=== PATIENT | female | born 1985 | race African-American/Black ===

== ENCOUNTER 2016-04-28 13:55 | Emergency (ER) | payer OTHER ==
[2016-04-28] MEDS ORDERED: Bupivacaine 0.5% 10 ML VIAL ONE (14:15)
[2016-04-28] MEDS ORDERED: Morphine Sulfate 2 MG/ML SYRINGE ONE (14:18)
--- NOTE | 2016-04-28 15:23 | ERRECORD ---
[facility] EMERGENCY RECORD HPI ABSCESS (14:48 BPIC) CHIEF COMPLAINT: Patient presents for evaluation of swelling, Patient presents for evaluation of pain. HISTORIAN: History provided by patient, left sided vaginal abscess similar to but more posterior than previous bartholin's gland abscess. sharp pain, worse when sitting. no radiation. no drainage, no fever. pt states that this had to be drained last time and it was a hard experience for her. she did follow up with her pcp last time and the abscess healed well. ROS (14:51 BPIC) CONSTITUTIONAL: Negative constitutional review of systems. EYES: Negative eye review of systems. ENT: Negative ears, nose, throat review of systems. CARDIOVASCULAR: Negative cardiovascular review of systems. RESPIRATORY: Negative respiratory review of systems. GI: Negative gastrointestinal review of systems. MUSCULOSKELETAL: Negative musculoskeletal review of systems. SKIN: genital abscess. PSYCHIATRIC: Negative psychiatric review of systems. NOTES: All other ROS is negative except as listed in HPI. PAST MEDICAL HISTORY MEDICAL HISTORY: Past medical history includes cardiac history, No past medical history of gynecologic disorders, No past medical history. POST HEART FAILURE. (14:03 MCBE) FEMALE SURGICAL HISTORY: Surgical history of section, Surgical history of tubal ligation. (14:03 MCBE) PSYCHIATRIC HISTORY: No previous psychiatric history. (14:03 MCBE) SOCIAL HISTORY: Patient denies alcohol use, Patient denies drug use, Patient currently uses tobacco, smokes cigarettes, Patient smokes 1 pack per day. (14:03 MCBE) NOTES: I have reviewed and agree with the PMH/PSxH/FamHx/SocHx obtained by the nurse. (14:51 BPIC) KNOWN ALLERGIES amoxicillin (Unconfirmed): Reaction: Hives penicillin G sodium CURRENT MEDICATIONS (14:00 MCBE) spironolactone: TABLET : Strength - 25 mg : ORAL Patient Dose: 12.5 mg once a day. carvedilol: TABLET : Strength - 3.125 mg : ORAL Patient Dose: 2 times a day. VITAL SIGNS &a-1R&a+25V*p+0X*[id number]*c202B*c15G*c2P*p-0X&a-25V&a+1R Name: Jerome Bryan Becker : 1985 F30 MedRec: [id number] AcctNum: [id number] Prepared: TueApr 28, 2016 15:26 by Interface Page 1 of 3 pMD [facility] EMERGENCY RECORD VITAL SIGNS: BP: 160/99, Pulse: 124, Resp: 18, Temp: 97.6 (Oral), Pain: 10, O2 sat: 100 on Room Air, Time: 04/28/2016 14:02. (14:02 MCBE) BP: 145/78, Pulse: 99, Resp: 18, Temp: 98.0 (Oral), Pain: 3, O2 sat: 97 on Room Air, Time: 04/28/2016 15:17. (15:17 MCBE) PHYSICAL EXAM CONSTITUTIONAL: Vital signs reviewed, Patient afebrile, Pulse normal, Blood pressure normal, Respiratory rate normal, Patient appears non toxic, Patient appears pain free, Patient alert and oriented to person, place and time. (14:51 BPIC) HEAD: Head exam included findings of head atraumatic, normocephalic. (14:51 BPIC) EYES: Eye exam included findings of eyelids normal to inspection, Pupils equally round and reactive to light, Extraocular muscles intact. (14:51 BPIC) ENT: ENT exam normal. (14:51 BPIC) NECK: Neck exam included findings of normal range of motion, Trachea midline. (14:51 BPIC) RESPIRATORY CHEST: Respiratory exam included findings of no respiratory distress, Breath sounds clear. (14:51 BPIC) CARDIOVASCULAR: Cardiovascular exam included findings of heart rate regular rate and rhythm, Heart sounds normal. (14:51 BPIC) GENITOURINARY FEMALE: Genitourinary exam included findings of external genitalia abnormal, left inferior labial abscess with erythema tenderness and fluctuance. (14:53 BPIC) NEURO: Neuro exam findings include patient oriented to person, place and time, Speech normal. (14:51 BPIC) PSYCHIATRIC: Psychiatric exam included findings of patient oriented to person place and time, Normal affect. (14:51 BPIC) MEDICATION ADMINISTRATION SUMMARY Drug Name: morphine injection, Dose Ordered: 2 mg, Route: Intramuscular, Status: Given, Time: 14:22 04/28/2016, Detailed record available in Medication Service section. DOCTOR NOTES (14:59 BPIC) TEXT: I discussed the diagnosis with the patient prior to discharge. All questions were answered. There is no indication for admission currently and the patient will follow up with his primary care physician. Any pertinent labs or imaging was reviewed and dicussed with the patient. If any new or emergent symptoms occur, the patient will return to the emergency department. PROBLEM LIST No recorded problems DIAGNOSIS (14:59 BPIC) FINAL: PRIMARY: Left labial vaginal abscess. &a-1R&a+25V*p+0X*s1180L*c202B*c15G*c2P*p-0X&a-25V&a+1R Name: Bryan Cano : 1985 F30 MedRec: [id number] AcctNum: [id number] Prepared: TueApr 28, 2016 15:26 by Interface Page 2 of 3 pMD [facility] EMERGENCY RECORD PRESCRIPTION (15:00 BPIC) clindamycin HCl: CAPSULE : 300 mg : ORAL : Quantity: 300 Unit: mg Route: ORAL Schedule: 3 times a day Dispense: 30 Unit: cap(s) May substitute. Refills: No Refills . NOTES: No Refills. traMADol: TABLET : 50 mg : ORAL : Quantity: 50 Unit: mg Route: ORAL Schedule: every 6 hours PRN Dispense: 20 Unit: tab(s) May substitute. Refills: No Refills . NOTES: ^s=No Refills No Refills. DISPOSITION PATIENT: Disposition Type: Discharge, Disposition: *Discharge Home, Condition: Good. (14:59 BPIC) Patient left the department. (15:22 MCBE) Singh: BPIC=MD Ricks Bryan MCBE=Natalie Augustine &a-1R&a+25V*p+0X*l7252G*c202B*c15G*c2P*p-0X&a-25V&a+1R Name: Bryan Cano : 1985 F30 MedRec: [id number] AcctNum: [id number] Prepared: TueApr 28, 2016 15:26 by Interface Page 3 of 3 pMD MTDD
--- NOTE | 2016-04-28 15:28 | PICIS ---
[facility] EMERGENCY RECORD TRIAGE (TueApr 28, 2016 14:00 MCBE) TRIAGE NOTES: diagnosed with abscess several months ago. PATIENT REPORTS IT HAS RETURNED. (TueApr 28, 2016 14:00 MCBE) PATIENT: NAME: Bryan Cano, AGE: 30, GENDER: female, : [facility] 1985, TIME OF GREET: TueApr 28, 2016 13:56, PREFERRED LANGUAGE: Czech, ETHNICITY: Not or , ECODE BILLING MAP: [facility], SSN: [id number], Zip Code: [address], KG WEIGHT: 86.64, PHONE: , , , PERSON ID: [id number]. (TueApr 28, 2016 14:00 MCBE) COMPLAINT: ABSCESS. (TueApr 28, 2016 14:00 MCBE) ADMISSION: URGENCY: 4 Non Urgent, ADMISSION SOURCE: Home, TRANSPORT: CAR, BED: ER -04. (TueApr 28, 2016 14:00 MCBE) ASSESSMENT: Assessment: PATIENT STABLE AND IN NAD. (14:03 MCBE) IMMUNIZATIONS: Flu vaccine up to date, Tetanus immunization up to date. (14:03 MCBE) SIRS SCORING: Heart Rate 55-109 (0), Temp range 96.8-101.1 (0), respiratory rate 12-24 (0), Mental Status altered: no (0), Infection or Suspected Infection: No. (14:03 MCBE) TRIAGE SCREENING: Patient denies suicidal ideation, Patient denies presence of domestic violence. (14:03 MCBE) PROVIDERS: TRIAGE NURSE: Natalie Augustine. (TueApr 28, 2016 14:00 MCBE) VITAL SIGNS: BP 160/99, Pulse 124, Resp 18, Temp 97.6, (Oral), Pain 10, O2 Sat 100, on Room Air, Time 04/28/2016 14:02. (14:02 MCBE) PREVIOUS VISIT ALLERGIES: amoxicillin, penicillin G sodium. (TueApr 28, 2016 14:00 MCBE) amoxicillin, penicillin G sodium. (14:03 MCBE) KNOWN ALLERGIES amoxicillin (Unconfirmed): Reaction: Hives penicillin G sodium CURRENT MEDICATIONS (14:00 MCBE) spironolactone: TABLET : Strength - 25 mg : ORAL Patient Dose: 12.5 mg once a day. carvedilol: TABLET : Strength - 3.125 mg : ORAL Patient Dose: 2 times a day. VITAL SIGNS VITAL SIGNS: BP: 160/99, Pulse: 124, Resp: 18, Temp: 97.6 (Oral), Pain: 10, O2 sat: 100 on Room Air, Time: 04/28/2016 14:02. (14:02 MCBE) BP: 145/78, Pulse: 99, Resp: 18, Temp: 98.0 (Oral), Pain: 3, O2 sat: 97 on Room Air, Time: 04/28/2016 15:17. (15:17 MCBE) NURSING ASSESSMENT: GENITOURINARY (14:05 MCBE) CONSTITUTIONAL: Complex assessment performed, Patient arrives &a-1R&a+25V*p+0X*l0192X*c202B*c15G*c2P*p-0X&a-25V&a+1R Name: Bryan Cano : 1985 F30 MedRec: [id number] AcctNum: [id number] Prepared: TueApr 28, 2016 15:26 by Interface Page 1 of 6 pMD [facility] EMERGENCY RECORD ambulatory, Gait steady, History obtained from patient, Patient appears comfortable, Patient cooperative, Patient alert, Oriented to person, place and time, Skin warm, Skin dry, Skin normal in color, Mucous membranes pink, Mucous membranes moist, Patient is well-groomed. PAIN FEMALE: to the left labia majora. NONVERBAL PAIN: Non-Verbal pain assessment findings include: No non-verbal complaints while at rest (0), Non-Verbal complaints present with movement (1), Facial Grimaces not present at rest (0), Facial grimaces not present with movement (0), Bracing not present at rest (0), Bracing not present with movement (0), Restlessness not present at rest (0), Restlessness not present with movement (0), Rubbing not present at rest (0), Rubbing not present with movement (0), Result: 1. GENITOURINARY FEMALE: no associated urinary complaints, no associated vaginal discharge, no associated vaginal bleeding, Associated with complaint of painful intercourse. ABDOMEN: Abdomen assessment findings include abdomen symmetrical, Abdomen soft, non-tender, Bowel sound normal, no associated nausea, no associated vomiting, no associated diarrhea. NURSING PROCEDURE: DISCHARGE NOTE (15:15 MCBE) DISCHARGE: Patient discharged to home, ambulating without assistance, family driving, accompanied by //partner, Summary of Care printed/ provided, Discharge instructions given to patient, Simple or moderate discharge teaching performed, by NATALIE DODSON, EXPLAINED DISCHARGE INSTRUCTIONS. INSTRUCTED TO RETURN IF S/S WORSEN. INSTRUCTED TO COMPLETE ALL ANITBIOTICS. INFORMED PATIENT PRESCRIPTION CAN BE FILLED AT ANY PHARMACY. GAVE INSTRUCTIONS FOR OBGYN THAT ERMD ADVISED TO FOLLOW-UP WITH, Prescriptions given and instructions on side effects given, Name of prescription(s) given: CLINDAMYCIN, TRAMADOL, Above person(s) verbalized understanding of discharge instructions and follow-up care, Patient treated and evaluated by physician, Notes: SIGNED PATIENT OUT. BELONGINGS: Belongings and valuables with patient upon arrival to the Emergency Department include:, Belongings and valuables with patient at time of discharge include:, jacket, pants, shirt, shoes, Belongings remain with patient, Valuables remain with patient. NURSING PROCEDURE: INCISION AND DRAINAGE (14:50 MCBE) PATIENT IDENTIFIER: Patient actively involved in identification process, Patient's identity verified by patient stating name, Patient's identity verified by patient stating date, Patient's identity verified by hospital ID bracelet. I & D: Incision and drainage indicated to promote healing, Incision and drainage indicated for pain control, Incision and drainage performed to the perineum, by Dr. URBAN, small amount, of serosanguineous fluid drained. &a-1R&a+25V*p+0X*h8780F*c202B*c15G*c2P*p-0X&a-25V&a+1R Name: Bryan Cano : 1985 F30 MedRec: [id number] AcctNum: [id number] Prepared: TueApr 28, 2016 15:26 by Interface Page 2 of 6 pMD [facility] EMERGENCY RECORD MEDICATION ADMINISTRATION SUMMARY Drug Name: morphine injection, Dose Ordered: 2 mg, Route: Intramuscular, Status: Given, Time: 14:22 04/28/2016, Detailed record available in Medication Service section. MEDICATION SERVICE (14:22 BPIC) morphine injection: Order: morphine injection (morphine sulfate) - Dose: 2 mg : Intramuscular Schedule: Now Ordered by: Wagner Urban MD Entered by: Wagner Urban MD TueApr 28, 2016 14:17 , Acknowledged by: Natalie Augustine TueApr 28, 2016 14:18 Documented as given by: Natalie Augustine TueApr 28, 2016 14:22 Patient, Medication, Dose, Route and Time verified prior to administration. IM medication, Amount given: 2mg, Medication administered to right deltoid, Patient appears Awake and alert- acceptable, Correct patient, time, route, dose and medication confirmed prior to administration, Patient advised of actions and side-effects prior to administration, Allergies confirmed and medications reviewed prior to administration, Patient in position of comfort, Side rails up, Cart in lowest position, Family at bedside, Call light in reach. HPI ABSCESS (14:48 BPIC) CHIEF COMPLAINT: Patient presents for evaluation of swelling, Patient presents for evaluation of pain. HISTORIAN: History provided by patient, left sided vaginal abscess similar to but more posterior than previous bartholin's gland abscess. sharp pain, worse when sitting. no radiation. no drainage, no fever. pt states that this had to be drained last time and it was a hard experience for her. she did follow up with her pcp last time and the abscess healed well. ROS (14:51 BPIC) CONSTITUTIONAL: Negative constitutional review of systems. EYES: Negative eye review of systems. ENT: Negative ears, nose, throat review of systems. CARDIOVASCULAR: Negative cardiovascular review of systems. RESPIRATORY: Negative respiratory review of systems. GI: Negative gastrointestinal review of systems. MUSCULOSKELETAL: Negative musculoskeletal review of systems. SKIN: genital abscess. PSYCHIATRIC: Negative psychiatric review of systems. NOTES: All other ROS is negative except as listed in HPI. PAST MEDICAL HISTORY MEDICAL HISTORY: Past medical history includes cardiac history, No past medical history of gynecologic disorders, No past &a-1R&a+25V*p+0X*r3802B*c202B*c15G*c2P*p-0X&a-25V&a+1R Name: Bryan Cano Eugenio : 1985 F30 MedRec: [id number] AcctNum: [id number] Prepared: TueApr 28, 2016 15:26 by Interface Page 3 of 6 pMD [facility] EMERGENCY RECORD medical history. POST HEART FAILURE. (14:03 MCBE) FEMALE SURGICAL HISTORY: Surgical history of section, Surgical history of tubal ligation. (14:03 MCBE) PSYCHIATRIC HISTORY: No previous psychiatric history. (14:03 MCBE) SOCIAL HISTORY: Patient denies alcohol use, Patient denies drug use, Patient currently uses tobacco, smokes cigarettes, Patient smokes 1 pack per day. (14:03 MCBE) NOTES: I have reviewed and agree with the PMH/PSxH/FamHx/SocHx obtained by the nurse. (14:51 BPIC) PHYSICAL EXAM CONSTITUTIONAL: Vital signs reviewed, Patient afebrile, Pulse normal, Blood pressure normal, Respiratory rate normal, Patient appears non toxic, Patient appears pain free, Patient alert and oriented to person, place and time. (14:51 BPIC) HEAD: Head exam included findings of head atraumatic, normocephalic. (14:51 BPIC) EYES: Eye exam included findings of eyelids normal to inspection, Pupils equally round and reactive to light, Extraocular muscles intact. (14:51 BPIC) ENT: ENT exam normal. (14:51 BPIC) NECK: Neck exam included findings of normal range of motion, Trachea midline. (14:51 BPIC) RESPIRATORY CHEST: Respiratory exam included findings of no respiratory distress, Breath sounds clear. (14:51 BPIC) CARDIOVASCULAR: Cardiovascular exam included findings of heart rate regular rate and rhythm, Heart sounds normal. (14:51 BPIC) GENITOURINARY FEMALE: Genitourinary exam included findings of external genitalia abnormal, left inferior labial abscess with erythema tenderness and fluctuance. (14:53 BPIC) NEURO: Neuro exam findings include patient oriented to person, place and time, Speech normal. (14:51 BPIC) PSYCHIATRIC: Psychiatric exam included findings of patient oriented to person place and time, Normal affect. (14:51 BPIC) EVENTS TRANSFER: Triage to Emergency Emergency Room -04. (TueApr 28, 2016 14:00 MCBE) Removed from Emergency Emergency Room -04. (15:22 MCBE) DOCTOR NOTES (14:59 BPIC) TEXT: I discussed the diagnosis with the patient prior to discharge. All questions were answered. There is no indication for admission currently and the patient will follow up with his primary care physician. Any pertinent labs or imaging was reviewed and dicussed with the patient. If any new or emergent symptoms occur, the patient will return to the emergency department. INCISION AND DRAINAGE (14:58 BPIC) &a-1R&a+25V*p+0X*w0928R*c202B*c15G*c2P*p-0X&a-25V&a+1R Name: Bryan Cano : 1985 F30 MedRec: [id number] AcctNum: [id number] Prepared: TueApr 28, 2016 15:26 by Interface Page 4 of 6 D [facility] EMERGENCY RECORD INCISION AND DRAINAGE: Side and/or site verified, Patient identification confirmed, Verbal consent obtained, Incision and drainage indicated for cutaneous abscess, Patient medicated prior to procedure, 0.5% Bupivicaine without epinephrine used, 6 mLs, Incision and drainage of Bartholin's gland abscess, Incision was made over area of fluctuance, Explored for loculations, Irrigated, Packed with sterile gauze, Drained blood, Tetanus status up to date, Patient tolerated the procedure well. PROBLEM LIST No recorded problems DIAGNOSIS (14:59 BPIC) FINAL: PRIMARY: Left labial vaginal abscess. DISPOSITION PATIENT: Disposition Type: Discharge, Disposition: *Discharge Home, Condition: Good. (14:59 BPIC) Patient left the department. (15:22 [facility] INSTRUCTION (15:01 BPIC) DISCHARGE: ABSCESS, I AND D. FOLLOWUP: MD Zelaya Janelle, Obstetrics and Gynecology, [address] [place] [address], [address] [address], . SPECIAL: Thank you for choosing [facility] Emergency Department for your care today! You may remove the packing from the abscess after 24 hours. Please follow up with your primary doctor or with an MEDICAL OFFICE WORKER in the next 2-3 days. Return to the emergency department with any other worsening or emergent symptoms. God bless you!. PRESCRIPTION (15:00 BPIC) clindamycin HCl: CAPSULE : 300 mg : ORAL : Quantity: 300 Unit: mg Route: ORAL Schedule: 3 times a day Dispense: 30 Unit: cap(s) May substitute. Refills: No Refills . NOTES: No Refills. traMADol: TABLET : 50 mg : ORAL : Quantity: 50 Unit: mg Route: ORAL Schedule: every 6 hours PRN Dispense: 20 Unit: tab(s) May substitute. Refills: No Refills . NOTES: ^s=No Refills No Refills. IMAGING (15:22 MCBE) *DISCHARGE INSTRUCTIONS RECEIPT: Image captured from scanner. *SUPPLY CHARGE SHEET: Image captured from scanner. ADMIN (15:16 IC) DIGITAL SIGNATURE: MD Urban Bryan. &a-1R&a+25V*p+0X*f6545A*c202B*c15G*c2P*p-0X&a-25V&a+1R Name: Bryan Cano : 1985 10 MedRec: [id number] AcctNum: [id number] Prepared: TueApr 28, 2016 15:26 by Interface Page 5 of 6 pMD [facility] EMERGENCY RECORD Singh: BPIC=MD Urban Bryan MCBE=Natalie Augustine &a-1R&a+25V*p+0X*f5867V*c202B*c15G*c2P*p-0X&a-25V&a+1R Name: Bryan Cano : 1985 F30 MedRec: [id number] AcctNum: [id number] Prepared: TueApr 28, 2016 15:26 by Interface Page 6 of 6 pMD MTDD
== END 2016-04-28 15:15 | disposition home or self-care (01) ==
LOC: NAV ERS 13:55
DX: N76.4 Abscess of vulva (principal); F17.210 Nicotine dependence, cigarettes, uncomplicated; Z79.899 Other long term (current) drug therapy
CPT/HCPCS: 56420; 96372; J2270; J3490

== ENCOUNTER 2018-06-13 00:11 | Emergency (ER) | payer OTHER | END 2018-06-13 01:05 | LOC: NAV ERS 00:11 | DX: O89.1 Cardiac complications of anesthesia during the puerperium (principal); I50.9 Heart failure, unspecified; O99.345 Other mental disorders complicating the puerperium; F43.9 Reaction to severe stress, unspecified; F41.9 Anxiety disorder, unspecified; O99.335 Smoking (tobacco) complicating the puerperium; Z79.891 Long term (current) use of opiate analgesic; Z79.899 Other long term (current) drug therapy | CPT/HCPCS: 93005 ==

== ENCOUNTER 2018-06-28 16:32 | Emergency (ER) | payer OTHER ==
[2018-06-28] MEDS ORDERED: Bupivacaine 0.5% 10 ML VIAL ONE (16:51)
[2018-06-28] MEDS ORDERED: Lidocaine Viscous Sol 2% 15 ml UD Cup ONE (16:51)
[2018-06-28] MEDS ORDERED: Lidocaine 1% w/Epinephrine 1:100K 30 ML VIAL ONE (16:51)
[2018-06-28] MEDS ORDERED: Clindamycin 150 MG CAP ONE (17:29)
== END 2018-06-28 17:39 | disposition home or self-care (01) ==
LOC: NAV ERS 16:32
DX: K04.7 Periapical abscess without sinus (principal); F17.210 Nicotine dependence, cigarettes, uncomplicated; F41.9 Anxiety disorder, unspecified
CPT/HCPCS: 64400; J2001; J3490

== ENCOUNTER 2019-03-11 17:41 | Emergency (ER) | payer OTHER ==
[2019-03-11] MEDS ORDERED: predniSONE 20 MG TAB ONE (18:03)
[2019-03-11] MEDS ORDERED: Albuterol Sulfate 2.5 mg/0.5 ml Neb ONE ×2 (18:32→19:28)
[2019-03-11] MEDS ORDERED: Albuterol Sulfate 2.5 mg/3 ml Neb ONE ×2 (18:32→19:28)
[2019-03-11] MEDS ORDERED: methylPREDNISolone Sod Succ/PF 125 MG/2 ML VIAL ONE (20:10)
[2019-03-11] MEDS ORDERED: Ibuprofen 800 MG TAB ONE (20:35)
== END 2019-03-11 20:35 | disposition home or self-care (01) ==
LOC: NAV ERS 17:41
DX: J20.9 Acute bronchitis, unspecified (principal); J06.9 Acute upper respiratory infection, unspecified; F41.9 Anxiety disorder, unspecified; F17.210 Nicotine dependence, cigarettes, uncomplicated; Z79.899 Other long term (current) drug therapy
CPT/HCPCS: 94640; 94760; 96372; J2930; J7512; J7611; J7620

== ENCOUNTER 2019-12-09 11:48 | Emergency (ER) | payer OTHER | END 2019-12-09 12:27 | disposition home or self-care (01) | LOC: NAV ERS 11:48 | DX: K02.9 Dental caries, unspecified (principal); F41.9 Anxiety disorder, unspecified; Z79.899 Other long term (current) drug therapy; F17.210 Nicotine dependence, cigarettes, uncomplicated | CPT/HCPCS: 99282 ==